=== PATIENT | male | born 1995 | race Two or more races ===

== ENCOUNTER 2019-12-20 12:26 | Emergency (ER) | payer MEDICAID ==
[~2019-12-20] VITALS: Ht 182.9 cm; Wt 134.0 kg
[~2019-12-20 12:26] MED LIST: ARIP30TA2 PO; RISP2TAB22 PO; TOPI100T37 PO
[2019-12-20 15:24] VITALS: BP 122/80
[2019-12-20 15:29] LABS: BASOPHILS % 0.2 % (0.0-2.0); HEMATOCRIT. 45.3 % (42.0-52.0); LYMPHOCYTES % 25.5 % (20.0-50.0); MEAN CORPUSCULAR HEMOGLOBIN 30.7 pg (28.0-32.0); MEAN CORPUSCULAR VOLUME 92.4 fL (80.0-94.0); MEAN PLATELET VOLUME 9.5 fl (7.4-10.4); MONOCYTES % 10.5 % (2.0-8.0); NEUTROPHILS % 61.8 % (40.0-76.0); PLATELET 181 x1000/uL (130-400); RED CELL DISTRIBUTION WIDTH 13.7 % (11.6-14.6)
[2019-12-20] MEDS ORDERED: LEVETIRACETAM 500MG PREMIX 100 ML IV ONE (15:30)
[2019-12-20 15:34] LABS: CHLORIDE 108 mEq/L (98-107)
== END 2019-12-20 16:59 | disposition home or self-care (01) ==
LOC: ER 12:29
DX: G40.909 Epilepsy, unspecified, not intractable, without status epilepticus (principal); F84.0 Autistic disorder
CPT/HCPCS: 36415; 80053; 85025; 99283